=== PATIENT | male | born 1995 | race Caucasian/White ===

== ENCOUNTER 2024-07-04 07:54 | Emergency (ER) | payer MEDICAID ==
[~2024-07-04] VITALS: Ht 180.3 cm; Wt 68.2 kg
[2024-07-04] MEDS: NORMAL SALINE IC ONE (08:50)
[2024-07-04] MEDS: BUPIVAcaine/PF 2.5 mg/ml (0.25%) 30ml vial IJ ONE (08:50)
[2024-07-04] MEDS: PHENYLEPHRINE IC ONE (08:50)
[2024-07-04] MEDS: BUPIVAcaine/PF 2.5mg/ml (0.25%) 10ml vial IJ ONE (08:51)
[2024-07-04 09:51] VITALS: BP 117/52; PULSE 89; RESP 16; TEMP 98.5; O2SAT 99
== END 2024-07-04 09:51 | disposition home or self-care (01) ==
LOC: ER 07:55
DX: N48.33 Priapism, drug-induced (principal)
CPT/HCPCS: 54220; 99284